=== PATIENT | female | born 1945 | race Caucasian/White ===

== ENCOUNTER 2018-11-22 16:03 | Inpatient (IN) ==
[2018-11-23] MEDS ORDERED: Clobetasol Propionate 0.05% 15 GM Cream Tube TP PRN (04:09)
[2018-11-23] MEDS ORDERED: *HR* OxyCODONE/APAP 10/325 TABLET PO SCH (04:30)
[2018-11-23] MEDS: *HR* Heparin 5,000 UNIT/ML VIAL SQ SCH ×2 (05:46→18:15)
[2018-11-23] MEDS: *HR* OxyCODONE/APAP 10/325 TABLET PO PRN ×3 (05:47→18:15)
[2018-11-23] MEDS: Metoprolol XL (24 HR) Succ 50 MG TAB.ER.24H PO SCH (08:48)
[2018-11-23] MEDS: Gabapentin 300 MG CAPSULE PO SCH ×2 (08:48→21:59)
[2018-11-23] MEDS: Aspirin Enteric Coated 81 MG Tablet PO SCH (08:48)
[2018-11-23] MEDS: Baclofen 10 MG TABLET PO SCH ×3 (08:48→21:59)
[2018-11-23] MEDS: levoFLOXacin 500 MG TABLET PO SCH (08:48)
[2018-11-23] MEDS: (Lutein [Natural Lutein] 20 MG) PO SCH (08:52)
[2018-11-23 09:50] LABS: Hematocrit 33.3 % (35.3-44.9); Mean Corpuscular Hemoglobin 33.6 pg (28.0-33.3); Mean Corpuscular Volume 101.8 fL (83.0-100.0); Mean Platelet Volume 9.5 fL (9.4-12.4); Platelet Count 396 K/mcL (140-400); Red Blood Count 3.27 M/mcL (3.82-4.97); Red Cell Distribution Width 13.2 % (11.5-14.5); White Blood Count 8.4 K/mcL (4.3-11.1)
[2018-11-23 10:02] LABS: BUN/Creatinine Ratio 15 (6-26); Blood Urea Nitrogen 14 mg/dL (8-23); Calcium 8.9 mg/dL (8.6-10.3); Carbon Dioxide 29 mEq/L (23-29); Chloride 98 mEq/L (98-107); Glucose 223 mg/dL (70-105); Osmolality,Calculated 287 (280-300); Potassium 4.2 mEq/L (3.5-5.1); Sodium 135 mEq/L (136-145); eGFR For African Americans > 60 (> 60); eGFR For Non-African Americans 60 (> 60)
[2018-11-23] MEDS: Melatonin 3 MG TABLET PO PRN (21:59)
[2018-11-23] MEDS: rOPINIRole 1 MG TABLET PO SCH (21:59)
[2018-11-24] MEDS: *HR* OxyCODONE/APAP 10/325 TABLET PO PRN ×4 (00:41→20:02)
[2018-11-24] MEDS: *HR* Heparin 5,000 UNIT/ML VIAL SQ SCH ×2 (05:56→17:58)
[2018-11-24 07:05] LABS: BUN/Creatinine Ratio 12 (6-26); Blood Urea Nitrogen 10 mg/dL (8-23); Carbon Dioxide 32 mEq/L (23-29); Chloride 100 mEq/L (98-107); Glucose 142 mg/dL (70-105); Osmolality,Calculated 291 (280-300); Potassium 3.5 mEq/L (3.5-5.1); Sodium 140 mEq/L (136-145); eGFR For African Americans > 60 (> 60); eGFR For Non-African Americans > 60 (> 60)
[2018-11-24] MEDS ORDERED: NON-FORMULARY MEDICATION 1 EACH EACH (Alendronate Sodium [Fosamax] 70 MG) PO SCH (09:00)
[2018-11-24] MEDS: Gabapentin 300 MG CAPSULE PO SCH ×2 (10:14→20:01)
[2018-11-24] MEDS: Aspirin Enteric Coated 81 MG Tablet PO SCH (10:15)
[2018-11-24] MEDS: levoFLOXacin 500 MG TABLET PO SCH (10:15)
[2018-11-24] MEDS: Metoprolol XL (24 HR) Succ 50 MG TAB.ER.24H PO SCH (10:15)
[2018-11-24] MEDS: (Lutein [Natural Lutein] 20 MG) PO SCH (10:15)
[2018-11-24] MEDS: Baclofen 10 MG TABLET PO SCH ×3 (10:15→20:01)
[2018-11-24 11:59] LABS: Vitamin B12 164 pg/mL (250-1100)
[2018-11-24 12:00] LABS: Vitamin D 25 Hydroxy 47 ng/mL (30-80)
[2018-11-24] MEDS: Cyanocobalamin (B-12) 1,000 MCG/ML VIAL IM SCH (14:12)
[2018-11-24] MEDS: Ondansetron ODT 4 MG TAB.RAPDIS SL PRN (19:01)
[2018-11-24] MEDS: rOPINIRole 1 MG TABLET PO SCH (20:01)
[2018-11-25] MEDS: *HR* OxyCODONE/APAP 10/325 TABLET PO PRN (04:32)
[2018-11-25] MEDS: *HR* Heparin 5,000 UNIT/ML VIAL SQ SCH ×2 (05:00→16:56)
[2018-11-25] MEDS: Ondansetron ODT 4 MG TAB.RAPDIS SL PRN (05:25)
[2018-11-25] MEDS: Gabapentin 300 MG CAPSULE PO SCH (09:51)
[2018-11-25] MEDS: Baclofen 10 MG TABLET PO SCH ×2 (09:51→14:20)
[2018-11-25] MEDS: levoFLOXacin 500 MG TABLET PO SCH (09:51)
[2018-11-25] MEDS: Metoprolol XL (24 HR) Succ 50 MG TAB.ER.24H PO SCH (09:51)
[2018-11-25] MEDS: Cyanocobalamin (B-12) 1,000 MCG/ML VIAL IM SCH (09:51)
[2018-11-25] MEDS: (Lutein [Natural Lutein] 20 MG) PO SCH (09:53)
[2018-11-25] MEDS ORDERED: 0.9 % Sodium Chloride w KCl 20 MEQ/1,000 ML MLS IVC SCH (11:45)
[2018-11-25] MEDS: Acetaminophen 325 MG TABLET PO PRN ×3 (14:24→22:29)
[2018-11-25] MEDS: rOPINIRole 1 MG TABLET PO SCH (22:20)
[2018-11-25] MEDS: Melatonin 3 MG TABLET PO PRN (22:32)
[2018-11-26] MEDS: *HR* OxyCODONE/APAP 10/325 TABLET PO PRN (00:42)
[2018-11-26] MEDS: *HR* Heparin 5,000 UNIT/ML VIAL SQ SCH ×2 (05:32→17:57)
[2018-11-26] MEDS: Acetaminophen 325 MG TABLET PO PRN ×2 (05:36→08:25)
[2018-11-26] MEDS: levoFLOXacin 500 MG TABLET PO SCH (08:25)
[2018-11-26] MEDS: (Lutein [Natural Lutein] 20 MG) PO SCH (08:27)
[2018-11-26] MEDS: Cyanocobalamin (B-12) 1,000 MCG/ML VIAL IM SCH (08:28)
[2018-11-26] MEDS ORDERED: Metoprolol XL (24 HR) Succ 25 MG TAB.ER.24H PO SCH (09:00)
[2018-11-26] MEDS ORDERED: Ibuprofen 400 MG TABLET PO PRN (10:26)
[2018-11-26] MEDS ORDERED: *HR* HYDROcodone/Acet 5/325 mg TABLET PO PRN ×2 (10:44)
[2018-11-26] MEDS: *HR* HYDROcodone/Acet 5/325 mg TABLET PO PRN ×3 (11:42→22:42)
[2018-11-26] MEDS: Famotidine 20 MG TABLET PO SCH ×2 (14:53→20:54)
[2018-11-26] MEDS: tiZANidine 4 MG TABLET PO PRN ×2 (18:19→23:52)
[2018-11-26] MEDS: Melatonin 3 MG TABLET PO PRN (20:54)
[2018-11-26] MEDS: rOPINIRole 1 MG TABLET PO SCH (20:54)
[2018-11-26] MEDS ORDERED: Famotidine 20 MG TABLET PO SCH (21:00)
[2018-11-27] MEDS: *HR* Heparin 5,000 UNIT/ML VIAL SQ SCH ×2 (05:01→17:59)
[2018-11-27] MEDS: *HR* HYDROcodone/Acet 5/325 mg TABLET PO PRN ×3 (07:47→23:10)
[2018-11-27] MEDS: Famotidine 20 MG TABLET PO SCH ×2 (07:48→20:33)
[2018-11-27] MEDS: (Lutein [Natural Lutein] 20 MG) PO SCH (07:49)
[2018-11-27] MEDS: Cyanocobalamin (B-12) 1,000 MCG/ML VIAL IM SCH (08:23)
[2018-11-27 10:16] LABS: Basophils % 0.2 %; Eosinophils # 0.1 K/mcL (0.0-0.6); Eosinophils % 1.3 %; Hematocrit 34.8 % (35.3-44.9); Hemoglobin 11.3 g/dL (11.5-15.4); Immature Granulocytes % 1.6 % (0-4); Lymphocytes # 2.4 K/mcL (0.6-4.6); Lymphocytes % 25.3 %; Mean Corpuscular HGB Conc 32.5 g/dL (31.6-35.5); Mean Corpuscular Hemoglobin 33.3 pg (28.0-33.3); Mean Corpuscular Volume 102.7 fL (83.0-100.0); Mean Platelet Volume 9.2 fL (9.4-12.4); Monocytes % 10.7 %; Neutrophils # 5.8 K/mcL (1.6-8.9); Platelet Count 572 K/mcL (140-400); Red Blood Count 3.39 M/mcL (3.82-4.97); Red Cell Distribution Width 13.6 % (11.5-14.5); Segmented Neutrophils % 60.9 %; White Blood Count 9.6 K/mcL (4.3-11.1)
[2018-11-27 10:27] LABS: Alanine Aminotransferase 17 Units/L (7-52); Albumin 3.3 g/dL (3.5-5.7); Albumin/Globulin Ratio 1.2 (1.1-2.2); Alkaline Phosphatase 66 Units/L (34-104); Aspartate Amino Transferase 13 Units/L (13-39); BUN/Creatinine Ratio 14 (6-26); Bilirubin,Total 0.5 mg/dL (0.3-1.0); Blood Urea Nitrogen 14 mg/dL (8-23); Calcium 9.3 mg/dL (8.6-10.3); Carbon Dioxide 21 mEq/L (23-29); Chloride 100 mEq/L (98-107); Globulin 2.7 g/dL (2.4-3.5); Glucose 161 mg/dL (70-105); Osmolality,Calculated 282 (280-300); Potassium 4.3 mEq/L (3.5-5.1); Sodium 134 mEq/L (136-145); eGFR For African Americans > 60 (> 60); eGFR For Non-African Americans 56 (> 60)
[2018-11-27] MEDS: levoFLOXacin 500 MG TABLET PO SCH (11:07)
[2018-11-27] MEDS: tiZANidine 4 MG TABLET PO PRN ×2 (11:50→20:33)
[2018-11-27] MEDS: Mag Hydrox/Al Hydrox/Simeth 30 ML UDC PO PRN (18:00)
[2018-11-27] MEDS: rOPINIRole 1 MG TABLET PO SCH (20:33)
[2018-11-27] MEDS: Melatonin 3 MG TABLET PO PRN (20:33)
[2018-11-28] MEDS: tiZANidine 4 MG TABLET PO PRN ×3 (02:31→21:04)
[2018-11-28] MEDS: *HR* Heparin 5,000 UNIT/ML VIAL SQ SCH ×2 (06:18→17:09)
[2018-11-28] MEDS: *HR* HYDROcodone/Acet 5/325 mg TABLET PO PRN ×2 (06:19→15:55)
[2018-11-28] MEDS: (Lutein [Natural Lutein] 20 MG) PO SCH (07:59)
[2018-11-28] MEDS: Famotidine 20 MG TABLET PO SCH ×2 (07:59→21:04)
[2018-11-28] MEDS: Cyanocobalamin (B-12) 1,000 MCG TABLET PO SCH (07:59)
[2018-11-28] MEDS: Ondansetron ODT 4 MG TAB.RAPDIS SL PRN (08:24)
[2018-11-28] MEDS: rOPINIRole 1 MG TABLET PO SCH (21:04)
[2018-11-28] MEDS: Melatonin 3 MG TABLET PO PRN (21:04)
[2018-11-29] MEDS: *HR* HYDROcodone/Acet 5/325 mg TABLET PO PRN ×3 (00:20→18:27)
[2018-11-29] MEDS: tiZANidine 4 MG TABLET PO PRN ×3 (05:55→21:03)
[2018-11-29] MEDS: *HR* Heparin 5,000 UNIT/ML VIAL SQ SCH ×2 (05:55→18:27)
[2018-11-29] MEDS: Famotidine 20 MG TABLET PO SCH ×2 (08:18→21:03)
[2018-11-29] MEDS: Cyanocobalamin (B-12) 1,000 MCG TABLET PO SCH (08:18)
[2018-11-29] MEDS: (Lutein [Natural Lutein] 20 MG) PO SCH (08:20)
[2018-11-29] MEDS: rOPINIRole 1 MG TABLET PO SCH (21:03)
[2018-11-29] MEDS: Melatonin 3 MG TABLET PO PRN (21:03)
[2018-11-30] MEDS: *HR* HYDROcodone/Acet 5/325 mg TABLET PO PRN ×4 (00:03→23:43)
[2018-11-30] MEDS: tiZANidine 4 MG TABLET PO PRN ×2 (04:13→12:26)
[2018-11-30] MEDS: *HR* Heparin 5,000 UNIT/ML VIAL SQ SCH ×2 (04:13→17:24)
[2018-11-30] MEDS: (Lutein [Natural Lutein] 20 MG) PO SCH (08:35)
[2018-11-30] MEDS: Cyanocobalamin (B-12) 1,000 MCG TABLET PO SCH (08:35)
[2018-11-30] MEDS: Famotidine 20 MG TABLET PO SCH ×2 (08:35→20:24)
[2018-11-30] MEDS ORDERED: Apixaban 5 MG TABLET PO SCH (09:00)
[2018-11-30] MEDS: Cholecalciferol (D-3) 1,000 UNIT (25MCG) TABLET PO SCH (12:26)
[2018-11-30] MEDS: Acetaminophen 325 MG TABLET PO PRN (20:24)
[2018-11-30] MEDS: Melatonin 3 MG TABLET PO PRN (20:24)
[2018-11-30] MEDS: rOPINIRole 1 MG TABLET PO SCH (20:24)
[2018-12-01] MEDS: tiZANidine 4 MG TABLET PO PRN ×3 (03:30→21:00)
[2018-12-01] MEDS: *HR* Heparin 5,000 UNIT/ML VIAL SQ SCH ×2 (05:36→16:54)
[2018-12-01] MEDS: Cholecalciferol (D-3) 1,000 UNIT (25MCG) TABLET PO SCH (07:39)
[2018-12-01] MEDS: (Lutein [Natural Lutein] 20 MG) PO SCH (07:39)
[2018-12-01] MEDS: Cyanocobalamin (B-12) 1,000 MCG TABLET PO SCH (07:40)
[2018-12-01] MEDS: *HR* HYDROcodone/Acet 5/325 mg TABLET PO PRN ×2 (07:40→21:00)
[2018-12-01] MEDS: Famotidine 20 MG TABLET PO SCH ×2 (07:41→20:59)
[2018-12-01] MEDS: rOPINIRole 1 MG TABLET PO SCH (21:00)
[2018-12-02] MEDS: Acetaminophen 325 MG TABLET PO PRN (01:23)
[2018-12-02] MEDS: *HR* Heparin 5,000 UNIT/ML VIAL SQ SCH ×2 (04:46→18:11)
[2018-12-02] MEDS: tiZANidine 4 MG TABLET PO PRN ×2 (04:46→20:16)
[2018-12-02 05:48] LABS: Basophils % 0.5 %; Eosinophils # 0.1 K/mcL (0.0-0.6); Eosinophils % 1.5 %; Hematocrit 33.6 % (35.3-44.9); Immature Granulocytes % 0.7 % (0-4); Lymphocytes # 1.6 K/mcL (0.6-4.6); Lymphocytes % 25.4 %; Mean Corpuscular HGB Conc 32.7 g/dL (31.6-35.5); Mean Corpuscular Hemoglobin 33.4 pg (28.0-33.3); Mean Corpuscular Volume 102.1 fL (83.0-100.0); Monocytes # 0.8 K/mcL (0.0-1.3); Monocytes % 12.7 %; Neutrophils # 3.6 K/mcL (1.6-8.9); Platelet Count 456 K/mcL (140-400); Red Blood Count 3.29 M/mcL (3.82-4.97); Red Cell Distribution Width 14.1 % (11.5-14.5); Segmented Neutrophils % 59.2 %; White Blood Count 6.1 K/mcL (4.3-11.1)
[2018-12-02 05:59] LABS: BUN/Creatinine Ratio 16 (6-26); Blood Urea Nitrogen 12 mg/dL (8-23); Calcium 8.9 mg/dL (8.6-10.3); Carbon Dioxide 27 mEq/L (23-29); Chloride 104 mEq/L (98-107); Glucose 113 mg/dL (70-105); Magnesium 2.2 mg/dL (1.6-2.6); Osmolality,Calculated 287 (280-300); Potassium 3.5 mEq/L (3.5-5.1); Sodium 138 mEq/L (136-145); eGFR For African Americans > 60 (> 60); eGFR For Non-African Americans > 60 (> 60)
[2018-12-02] MEDS: Cholecalciferol (D-3) 1,000 UNIT (25MCG) TABLET PO SCH (09:32)
[2018-12-02] MEDS: Cyanocobalamin (B-12) 1,000 MCG TABLET PO SCH (09:33)
[2018-12-02] MEDS: Famotidine 20 MG TABLET PO SCH ×2 (09:33→20:16)
[2018-12-02] MEDS: (Lutein [Natural Lutein] 20 MG) PO SCH (09:40)
[2018-12-02] MEDS: *HR* HYDROcodone/Acet 5/325 mg TABLET PO PRN ×3 (09:40→18:11)
[2018-12-02] MEDS: Mag Hydrox/Al Hydrox/Simeth 30 ML UDC PO PRN ×2 (12:47→18:16)
[2018-12-02] MEDS: Melatonin 3 MG TABLET PO PRN (20:16)
[2018-12-02] MEDS: rOPINIRole 1 MG TABLET PO SCH (20:16)
[2018-12-03] MEDS: *HR* HYDROcodone/Acet 5/325 mg TABLET PO PRN ×3 (01:09→20:01)
[2018-12-03] MEDS: tiZANidine 4 MG TABLET PO PRN ×2 (05:06→14:27)
[2018-12-03] MEDS: *HR* Heparin 5,000 UNIT/ML VIAL SQ SCH (05:06)
[2018-12-03] MEDS: Cholecalciferol (D-3) 1,000 UNIT (25MCG) TABLET PO SCH (09:10)
[2018-12-03] MEDS: Cyanocobalamin (B-12) 1,000 MCG TABLET PO SCH (09:10)
[2018-12-03] MEDS: Famotidine 20 MG TABLET PO SCH ×2 (09:11→20:01)
[2018-12-03] MEDS: (Lutein [Natural Lutein] 20 MG) PO SCH (09:13)
[2018-12-03] MEDS: Apixaban 5 MG TABLET PO SCH ×2 (14:27→20:01)
[2018-12-03] MEDS: Melatonin 3 MG TABLET PO PRN (20:01)
[2018-12-03] MEDS: rOPINIRole 1 MG TABLET PO SCH (20:01)
[2018-12-04] MEDS: Apixaban 5 MG TABLET PO SCH ×2 (08:06→20:41)
[2018-12-04] MEDS: Famotidine 20 MG TABLET PO SCH ×2 (08:07→20:42)
[2018-12-04] MEDS: Cholecalciferol (D-3) 1,000 UNIT (25MCG) TABLET PO SCH (08:07)
[2018-12-04] MEDS: Cyanocobalamin (B-12) 1,000 MCG TABLET PO SCH (08:07)
[2018-12-04] MEDS: tiZANidine 4 MG TABLET PO PRN ×2 (08:07→19:07)
[2018-12-04] MEDS: (Lutein [Natural Lutein] 20 MG) PO SCH (08:11)
[2018-12-04] MEDS: rOPINIRole 1 MG TABLET PO SCH (20:41)
[2018-12-04] MEDS: *HR* HYDROcodone/Acet 5/325 mg TABLET PO PRN (21:35)
[2018-12-05] MEDS: tiZANidine 4 MG TABLET PO PRN ×3 (01:11→18:12)
[2018-12-05] MEDS: *HR* HYDROcodone/Acet 5/325 mg TABLET PO PRN ×3 (05:44→23:17)
[2018-12-05] MEDS: Famotidine 20 MG TABLET PO SCH ×2 (08:36→20:27)
[2018-12-05] MEDS: Cyanocobalamin (B-12) 1,000 MCG TABLET PO SCH (08:36)
[2018-12-05] MEDS: Apixaban 5 MG TABLET PO SCH ×2 (08:36→20:26)
[2018-12-05] MEDS: Cholecalciferol (D-3) 1,000 UNIT (25MCG) TABLET PO SCH (08:36)
[2018-12-05] MEDS: (Lutein [Natural Lutein] 20 MG) PO SCH (08:37)
[2018-12-05 12:57] LABS: % Iron Saturation 27 % (15-50); Iron 81 mcg/dL (50-170); Transferrin 211 mg/dL (203-362)
[2018-12-05 12:59] LABS: Prealbumin 22.7 mg/dL (17.0-34.0)
[2018-12-05] MEDS: rOPINIRole 1 MG TABLET PO SCH (20:27)
[2018-12-05] MEDS: Melatonin 3 MG TABLET PO PRN (20:27)
[2018-12-06] MEDS: tiZANidine 4 MG TABLET PO PRN ×2 (03:15→09:38)
[2018-12-06] MEDS: *HR* HYDROcodone/Acet 5/325 mg TABLET PO PRN ×3 (05:35→21:42)
[2018-12-06 05:59] LABS: Alanine Aminotransferase 9 Units/L (7-52); Albumin 3.2 g/dL (3.5-5.7); Albumin/Globulin Ratio 1.3 (1.1-2.2); Alkaline Phosphatase 64 Units/L (34-104); Aspartate Amino Transferase 11 Units/L (13-39); BUN/Creatinine Ratio 17 (6-26); Bilirubin,Total 0.7 mg/dL (0.3-1.0); Blood Urea Nitrogen 13 mg/dL (8-23); Carbon Dioxide 26 mEq/L (23-29); Chloride 104 mEq/L (98-107); Globulin 2.4 g/dL (2.4-3.5); Glucose 118 mg/dL (70-105); Osmolality,Calculated 287 (280-300); Potassium 4.3 mEq/L (3.5-5.1); Sodium 138 mEq/L (136-145); Total Protein 5.6 g/dL (6.4-8.9); eGFR For African Americans > 60 (> 60); eGFR For Non-African Americans > 60 (> 60)
[2018-12-06] MEDS: Apixaban 5 MG TABLET PO SCH ×2 (09:38→21:42)
[2018-12-06] MEDS: Famotidine 20 MG TABLET PO SCH ×2 (09:39→21:41)
[2018-12-06] MEDS: Cholecalciferol (D-3) 1,000 UNIT (25MCG) TABLET PO SCH (09:39)
[2018-12-06] MEDS: Cyanocobalamin (B-12) 1,000 MCG TABLET PO SCH (09:39)
[2018-12-06] MEDS: (Lutein [Natural Lutein] 20 MG) PO SCH (09:39)
[2018-12-06] MEDS: rOPINIRole 1 MG TABLET PO SCH (21:42)
[2018-12-06] MEDS: Melatonin 3 MG TABLET PO PRN (21:42)
[2018-12-07] MEDS: tiZANidine 4 MG TABLET PO PRN (00:13)
[2018-12-07] MEDS: Apixaban 5 MG TABLET PO SCH (22:00)
[2018-12-07] MEDS: Melatonin 3 MG TABLET PO PRN (22:01)
[2018-12-07] MEDS: Famotidine 20 MG TABLET PO SCH (22:01)
[2018-12-07] MEDS: rOPINIRole 1 MG TABLET PO SCH (22:01)
[2018-12-07] MEDS: *HR* HYDROcodone/Acet 5/325 mg TABLET PO PRN (22:02)
[2018-12-08] MEDS: tiZANidine 4 MG TABLET PO PRN ×2 (01:32→13:05)
[2018-12-08] MEDS: Cyanocobalamin (B-12) 1,000 MCG TABLET PO SCH (08:16)
[2018-12-08] MEDS: Cholecalciferol (D-3) 1,000 UNIT (25MCG) TABLET PO SCH (08:16)
[2018-12-08] MEDS: *HR* HYDROcodone/Acet 5/325 mg TABLET PO PRN ×2 (08:16→20:35)
[2018-12-08] MEDS: Famotidine 20 MG TABLET PO SCH ×2 (08:16→20:34)
[2018-12-08] MEDS: Apixaban 5 MG TABLET PO SCH ×2 (08:17→20:34)
[2018-12-08] MEDS: (Lutein [Natural Lutein] 20 MG) PO SCH (08:19)
[2018-12-08] MEDS: Melatonin 3 MG TABLET PO PRN (20:34)
[2018-12-08] MEDS: rOPINIRole 1 MG TABLET PO SCH (20:34)
[2018-12-09] MEDS: tiZANidine 4 MG TABLET PO PRN ×3 (02:49→20:55)
[2018-12-09] MEDS: Cyanocobalamin (B-12) 1,000 MCG TABLET PO SCH (07:55)
[2018-12-09] MEDS: Cholecalciferol (D-3) 1,000 UNIT (25MCG) TABLET PO SCH (07:55)
[2018-12-09] MEDS: Famotidine 20 MG TABLET PO SCH ×2 (07:56→20:55)
[2018-12-09] MEDS: Apixaban 5 MG TABLET PO SCH ×2 (07:56→20:54)
[2018-12-09] MEDS: *HR* HYDROcodone/Acet 5/325 mg TABLET PO PRN ×2 (07:56→17:12)
[2018-12-09] MEDS: (Lutein [Natural Lutein] 20 MG) PO SCH (07:57)
[2018-12-09] MEDS: Melatonin 3 MG TABLET PO PRN (20:54)
[2018-12-09] MEDS: rOPINIRole 1 MG TABLET PO SCH (20:54)
[2018-12-10] MEDS: *HR* HYDROcodone/Acet 5/325 mg TABLET PO PRN ×2 (02:25→11:05)
[2018-12-10 07:43] VITALS: BP 131/74
[2018-12-10] MEDS: Apixaban 5 MG TABLET PO SCH ×2 (07:55)
[2018-12-10] MEDS: Famotidine 20 MG TABLET PO SCH (07:55)
[2018-12-10] MEDS: (Lutein [Natural Lutein] 20 MG) PO SCH ×2 (07:56→08:04)
[2018-12-10] MEDS: Cyanocobalamin (B-12) 1,000 MCG TABLET PO SCH ×2 (07:57→08:03)
[2018-12-10] MEDS: Cholecalciferol (D-3) 1,000 UNIT (25MCG) TABLET PO SCH ×2 (07:57→07:59)
== END 2018-12-10 12:50 | disposition home health service (06) | DRG 560 ==
LOC: INPGRE 11-23 03:18

== ENCOUNTER 2021-08-24 01:40 | Inpatient (IN) ==
[2021-08-24] MEDS ORDERED: Naloxone 0.4 MG/ML INJ IVP PRN (08:48)
[2021-08-24] MEDS ORDERED: Acetaminophen 325 MG TABLET PO PRN (08:48)
[2021-08-24] MEDS ORDERED: Nitroglycerin 0.4 MG TAB.SUBL SL PRN (08:55)
[2021-08-24] MEDS ORDERED: Metoprolol XL (24 HR) Succ 25 MG TAB.ER.24H PO SCH (09:00)
[2021-08-24 09:44] LABS: Hematocrit 37.2 % (35.3-44.9); Hemoglobin 12.2 g/dL (11.5-15.4); Mean Corpuscular HGB Conc 32.8 g/dL (31.6-35.5); Mean Corpuscular Volume 85.3 fL (83.0-100.0); Mean Platelet Volume 9.2 fL (9.4-12.4); Platelet Count 263 K/mcL (140-400); Red Blood Count 4.36 M/mcL (3.82-4.97); Red Cell Distribution Width 14.6 % (11.5-14.5); White Blood Count 7.5 K/mcL (4.3-11.1)
[2021-08-24] MEDS: Ipratropium/Albuterol Neb 3 ML IH SCH ×5 (09:45→23:59)
[2021-08-24 10:20] LABS: BUN/Creatinine Ratio 25 (6-26); Blood Urea Nitrogen 21 mg/dL (8-23); Calcium 9.2 mg/dL (8.6-10.3); Carbon Dioxide 27 mEq/L (23-29); Chloride 106 mEq/L (98-107); Glucose 131 mg/dL (70-105); Osmolality,Calculated 297 (280-300); Sodium 141 mEq/L (136-145); eGFR For African Americans > 60 (> 60); eGFR For Non-African Americans > 60 (> 60)
[2021-08-24] MEDS: Cyanocobalamin (B-12) 1,000 MCG TABLET PO SCH (11:30)
[2021-08-24] MEDS: Baclofen 10 MG TABLET PO SCH ×3 (11:30→20:11)
[2021-08-24] MEDS: Aspirin 81 MG TAB.CHEW PO SCH (11:31)
[2021-08-24] MEDS: Furosemide 20 MG TABLET PO SCH (11:31)
[2021-08-24] MEDS: levoFLOXacin 750 MG/150 ML 750 MG/150 ML BAG IVPB SCH (11:37)
[2021-08-24] MEDS: Patient Taking Own Medication 1 EACH PO SCH ×6 (11:49→20:11)
[2021-08-24] MEDS: Clobetasol Propionate 0.05% 15 GM Cream Tube TP SCH (11:50)
[2021-08-24] MEDS ORDERED: Metoprolol XL (24 HR) Succ 25 MG TAB.ER.24H PO ONE (14:15)
[2021-08-24 15:16] LABS: Adenovirus Not Detected (Not Detect); Bordetella Pertussis Not Detected (Not Detect); Chlamydophila pneumoniae Not Detected (Not Detect); Coronavirus 229E Not Detected (Not Detect); Coronavirus HKU1 Not Detected (Not Detect); Coronavirus NL63 Not Detected (Not Detect); Coronavirus OC43 Not Detected (Not Detect); Human Metapneumovirus Not Detected (Not Detect); Human Rhinovirus/Enterovirus Not Detected (Not Detect); Influenza A Subtype 2009 H1 Not Detected (Not Detect); Influenza B Not Detected (Not Detect); Mycoplasma pneumoniae Not Detected (Not Detect); Parainfluenza Virus 1 Not Detected (Not Detect); Parainfluenza Virus 2 Not Detected (Not Detect); Parainfluenza Virus 3 Not Detected (Not Detect); Parainfluenza Virus 4 Not Detected (Not Detect); Respiratory Syncytial Virus Not Detected (Not Detect); SARS-CoV-2 Not Detected (Not Detect)
[2021-08-24] MEDS: Gabapentin 300 MG CAPSULE PO SCH (20:11)
[2021-08-24] MEDS: *HR* OxyCODONE/APAP 10/325 TABLET PO PRN (20:11)
[2021-08-24] MEDS: Famotidine 20 MG TABLET PO SCH (20:11)
[2021-08-24] MEDS: rOPINIRole 1 MG TABLET PO SCH (20:11)
[2021-08-25] MEDS: Ipratropium/Albuterol Neb 3 ML IH SCH ×2 (04:27→07:28)
[2021-08-25 05:24] LABS: Hematocrit 38.7 % (35.3-44.9); Hemoglobin 12.4 g/dL (11.5-15.4); Mean Corpuscular Hemoglobin 28.1 pg (28.0-33.3); Mean Corpuscular Volume 87.6 fL (83.0-100.0); Mean Platelet Volume 9.6 fL (9.4-12.4); Platelet Count 254 K/mcL (140-400); Red Blood Count 4.42 M/mcL (3.82-4.97); Red Cell Distribution Width 14.9 % (11.5-14.5); White Blood Count 7.1 K/mcL (4.3-11.1)
[2021-08-25 05:47] LABS: BUN/Creatinine Ratio 16 (6-26); Blood Urea Nitrogen 16 mg/dL (8-23); Calcium 9.3 mg/dL (8.6-10.3); Carbon Dioxide 28 mEq/L (23-29); Chloride 104 mEq/L (98-107); Chol/HDL Ratio 3.9 (0-4.9); Cholesterol 199 mg/dL (< 200); Glucose 122 mg/dL (70-105); HDL Cholesterol 51 mg/dL (40-59); LDL Cholesterol,Calculated 122 mg/dL (< 100); Osmolality,Calculated 298 (280-300); Potassium 3.3 mEq/L (3.5-5.1); Sodium 143 mEq/L (136-145); Triglycerides 130 mg/dL (< 150); eGFR For African Americans > 60 (> 60); eGFR For Non-African Americans 55 (> 60)
[2021-08-25 07:52] LABS: Alanine Aminotransferase 8 Units/L (7-52); Albumin 3.5 g/dL (3.5-5.7); Alkaline Phosphatase 67 Units/L (34-104); Aspartate Amino Transferase 12 Units/L (13-39); Bilirubin,Direct 0.1 mg/dL (0.0-0.2); Bilirubin,Indirect 0.4 mg/dL (0.0-1.0); Bilirubin,Total 0.5 mg/dL (0.3-1.0)
[2021-08-25] MEDS: Levalbuterol Neb 1.25 MG/3 ML IH SCH ×3 (10:58→21:23)
[2021-08-25] MEDS: Furosemide 20 MG TABLET PO SCH (11:00)
[2021-08-25] MEDS: Metoprolol XL (24 HR) Succ 50 MG TAB.ER.24H PO SCH (11:00)
[2021-08-25] MEDS: Cyanocobalamin (B-12) 1,000 MCG TABLET PO SCH (11:00)
[2021-08-25] MEDS: Gabapentin 300 MG CAPSULE PO SCH ×2 (11:00→20:35)
[2021-08-25] MEDS: Baclofen 10 MG TABLET PO SCH ×3 (11:01→20:35)
[2021-08-25] MEDS: Aspirin 81 MG TAB.CHEW PO SCH (11:01)
[2021-08-25] MEDS: Patient Taking Own Medication 1 EACH PO SCH ×7 (11:01→20:36)
[2021-08-25] MEDS: levoFLOXacin 750 MG/150 ML 750 MG/150 ML BAG IVPB SCH (11:03)
[2021-08-25 11:07] LABS: Albumin/Globulin Ratio 1.3 (1.1-2.2); Globulin 2.7 g/dL (2.4-3.5); Total Protein 6.2 g/dL (6.4-8.9)
[2021-08-25] MEDS ORDERED: Iopamidol - 370 500 ML MLS IVP ONE (12:40)
[2021-08-25] MEDS ORDERED: Furosemide 20 MG/2 ML VIAL IVP ONE (14:48)
[2021-08-25] MEDS: *HR* Enoxaparin 40 MG/0.4 ML SYRINGE SQ SCH (15:12)
[2021-08-25] MEDS ORDERED: 0.9 % Sodium Chloride 250 ML IVC ONE (16:01)
[2021-08-25] MEDS: 0.9 % Sodium Chloride 1,000 ML IVC SCH (17:45)
[2021-08-25 20:23] LABS: Bilirubin,Urine Negative (Negative); Blood,Urine Negative (Negative); Clarity,Urine Clear (Clear); Color,Urine Yellow (Yellow); Glucose,Urine (UA) Normal (Normal); Ketones,Urine Negative (Negative); Leukocyte Esterase,Urine Negative (Negative); Nitrite,Urine Negative (Negative); Protein,Urine Negative (Neg-Trace); Specific Gravity,Urine 1.025 (1.010-1.025); Urobilinogen,Urine Normal (Normal)
[2021-08-25] MEDS: *HR* OxyCODONE/APAP 10/325 TABLET PO PRN (20:34)
[2021-08-25] MEDS: rOPINIRole 1 MG TABLET PO SCH (20:35)
[2021-08-25] MEDS: Famotidine 20 MG TABLET PO SCH (20:35)
[2021-08-25] MEDS ORDERED: Furosemide 20 MG TABLET PO SCH (21:00)
[2021-08-26 01:23] LABS: Hematocrit 35.2 % (35.3-44.9); Hemoglobin 11.3 g/dL (11.5-15.4); Mean Corpuscular HGB Conc 32.1 g/dL (31.6-35.5); Mean Corpuscular Hemoglobin 27.8 pg (28.0-33.3); Mean Corpuscular Volume 86.7 fL (83.0-100.0); Mean Platelet Volume 9.5 fL (9.4-12.4); Platelet Count 226 K/mcL (140-400); Red Blood Count 4.06 M/mcL (3.82-4.97); Red Cell Distribution Width 14.9 % (11.5-14.5); White Blood Count 7.2 K/mcL (4.3-11.1)
[2021-08-26 02:14] LABS: Alanine Aminotransferase 8 Units/L (7-52); Albumin 3.1 g/dL (3.5-5.7); Albumin/Globulin Ratio 1.3 (1.1-2.2); Alkaline Phosphatase 57 Units/L (34-104); Aspartate Amino Transferase 12 Units/L (13-39); BUN/Creatinine Ratio 15 (6-26); Bilirubin,Total 0.4 mg/dL (0.3-1.0); Blood Urea Nitrogen 16 mg/dL (8-23); Calcium 8.8 mg/dL (8.6-10.3); Carbon Dioxide 25 mEq/L (23-29); Chloride 107 mEq/L (98-107); Globulin 2.4 g/dL (2.4-3.5); Glucose 127 mg/dL (70-105); Magnesium 1.8 mg/dL (1.6-2.6); Osmolality,Calculated 297 (280-300); Potassium 3.5 mEq/L (3.5-5.1); Sodium 142 mEq/L (136-145); Total Protein 5.5 g/dL (6.4-8.9); eGFR For African Americans > 60 (> 60); eGFR For Non-African Americans 51 (> 60)
[2021-08-26] MEDS: Levalbuterol Neb 1.25 MG/3 ML IH SCH ×4 (04:06→21:26)
[2021-08-26] MEDS: *HR* Enoxaparin 40 MG/0.4 ML SYRINGE SQ SCH (04:49)
[2021-08-26] MEDS ORDERED: *HR* Enoxaparin 40 MG/0.4 ML SYRINGE SQ SCH (06:00)
[2021-08-26] MEDS: 0.9 % Sodium Chloride 1,000 ML IVC SCH (07:56)
[2021-08-26] MEDS: Metoprolol XL (24 HR) Succ 50 MG TAB.ER.24H PO SCH (07:57)
[2021-08-26] MEDS: *HR* OxyCODONE/APAP 10/325 TABLET PO PRN ×2 (07:57→21:16)
[2021-08-26] MEDS: Aspirin 81 MG TAB.CHEW PO SCH (07:57)
[2021-08-26] MEDS: Cyanocobalamin (B-12) 1,000 MCG TABLET PO SCH (07:57)
[2021-08-26] MEDS: Gabapentin 300 MG CAPSULE PO SCH ×2 (07:57→21:10)
[2021-08-26] MEDS: Patient Taking Own Medication 1 EACH PO SCH ×7 (07:58→23:31)
[2021-08-26] MEDS: Baclofen 10 MG TABLET PO SCH ×3 (07:58→21:11)
[2021-08-26] MEDS: Clobetasol Propionate 0.05% 15 GM Cream Tube TP SCH (07:59)
[2021-08-26] MEDS: levoFLOXacin 750 MG/150 ML 750 MG/150 ML BAG IVPB SCH (08:04)
[2021-08-26] MEDS: Ondansetron 4 MG/2 ML VIAL IVP PRN (17:37)
[2021-08-26] MEDS: rOPINIRole 1 MG TABLET PO SCH (21:11)
[2021-08-26] MEDS: Famotidine 20 MG TABLET PO SCH (21:11)
[2021-08-27] MEDS: Levalbuterol Neb 1.25 MG/3 ML IH SCH ×4 (04:05→22:00)
[2021-08-27] MEDS: *HR* OxyCODONE/APAP 10/325 TABLET PO PRN ×3 (04:09→20:50)
[2021-08-27] MEDS: *HR* Enoxaparin 40 MG/0.4 ML SYRINGE SQ SCH (04:09)
[2021-08-27] MEDS: levoFLOXacin 750 MG/150 ML 750 MG/150 ML BAG IVPB SCH (10:40)
[2021-08-27] MEDS: Aspirin 81 MG TAB.CHEW PO SCH (10:41)
[2021-08-27] MEDS: Metoprolol XL (24 HR) Succ 50 MG TAB.ER.24H PO SCH (10:41)
[2021-08-27] MEDS: Cyanocobalamin (B-12) 1,000 MCG TABLET PO SCH (10:41)
[2021-08-27] MEDS: Gabapentin 300 MG CAPSULE PO SCH ×2 (10:41→19:27)
[2021-08-27] MEDS: Baclofen 10 MG TABLET PO SCH ×3 (10:41→19:27)
[2021-08-27] MEDS: Patient Taking Own Medication 1 EACH PO SCH ×7 (10:42→19:37)
[2021-08-27 12:43] LABS: INR 1.4; Prothrombin Time 16.1 Seconds (9.4-12.1)
[2021-08-27] MEDS ORDERED: Warfarin perPT PO PRN (18:00)
[2021-08-27] MEDS ORDERED: *HR* Warfarin 2.5 MG TABLET PO ONE (18:00)
[2021-08-27] MEDS ORDERED: *HR* Warfarin 5 MG TABLET PO SCH (18:00)
[2021-08-27] MEDS: Famotidine 20 MG TABLET PO SCH (19:27)
[2021-08-27] MEDS: rOPINIRole 1 MG TABLET PO SCH (19:27)
[2021-08-27] MEDS: Ondansetron 4 MG/2 ML VIAL IVP PRN (19:27)
[2021-08-28] MEDS: Levalbuterol Neb 1.25 MG/3 ML IH SCH ×4 (04:49→19:48)
[2021-08-28] MEDS: *HR* Enoxaparin 40 MG/0.4 ML SYRINGE SQ SCH (04:54)
[2021-08-28 04:57] LABS: Hematocrit 33.6 % (35.3-44.9); Hemoglobin 10.6 g/dL (11.5-15.4); Mean Corpuscular HGB Conc 31.5 g/dL (31.6-35.5); Mean Corpuscular Hemoglobin 28.3 pg (28.0-33.3); Mean Corpuscular Volume 89.6 fL (83.0-100.0); Mean Platelet Volume 9.6 fL (9.4-12.4); Platelet Count 203 K/mcL (140-400); Red Blood Count 3.75 M/mcL (3.82-4.97); Red Cell Distribution Width 15.2 % (11.5-14.5); White Blood Count 7.3 K/mcL (4.3-11.1)
[2021-08-28 05:04] LABS: INR 1.4; Prothrombin Time 15.4 Seconds (9.4-12.1)
[2021-08-28 05:15] LABS: Alanine Aminotransferase 7 Units/L (7-52); Albumin 3.1 g/dL (3.5-5.7); Albumin/Globulin Ratio 1.4 (1.1-2.2); Alkaline Phosphatase 57 Units/L (34-104); Aspartate Amino Transferase 12 Units/L (13-39); BUN/Creatinine Ratio 15 (6-26); Bilirubin,Total 0.4 mg/dL (0.3-1.0); Blood Urea Nitrogen 16 mg/dL (8-23); Calcium 9.1 mg/dL (8.6-10.3); Carbon Dioxide 27 mEq/L (23-29); Chloride 107 mEq/L (98-107); Globulin 2.2 g/dL (2.4-3.5); Glucose 111 mg/dL (70-105); Magnesium 1.8 mg/dL (1.6-2.6); Osmolality,Calculated 290 (280-300); Potassium 3.7 mEq/L (3.5-5.1); Sodium 139 mEq/L (136-145); Total Protein 5.3 g/dL (6.4-8.9); eGFR For African Americans > 60 (> 60); eGFR For Non-African Americans 50 (> 60)
[2021-08-28] MEDS: Patient Taking Own Medication 1 EACH PO SCH ×7 (09:19→20:06)
[2021-08-28] MEDS: Gabapentin 300 MG CAPSULE PO SCH ×2 (09:57→20:09)
[2021-08-28] MEDS: Metoprolol XL (24 HR) Succ 50 MG TAB.ER.24H PO SCH (09:58)
[2021-08-28] MEDS: Baclofen 10 MG TABLET PO SCH ×3 (09:58→20:10)
[2021-08-28] MEDS: Cyanocobalamin (B-12) 1,000 MCG TABLET PO SCH (09:58)
[2021-08-28] MEDS: Aspirin 81 MG TAB.CHEW PO SCH (09:58)
[2021-08-28] MEDS: levoFLOXacin 750 MG/150 ML 750 MG/150 ML BAG IVPB SCH (09:59)
[2021-08-28] MEDS: *HR* OxyCODONE/APAP 10/325 TABLET PO PRN ×2 (10:10→21:02)
[2021-08-28] MEDS: Clobetasol Propionate 0.05% 15 GM Cream Tube TP SCH (12:01)
[2021-08-28] MEDS ORDERED: Bisacodyl 10 MG RECTAL SUPPOSITORY RC PRN (12:16)
[2021-08-28] MEDS ORDERED: MOM Conc 10 ML UD.LIQ PO PRN (12:16)
[2021-08-28] MEDS: Sennosides 8.6 MG TABLET PO SCH ×2 (14:01→20:10)
[2021-08-28] MEDS: Ondansetron ODT 4 MG TAB.RAPDIS SL PRN (17:49)
[2021-08-28] MEDS ORDERED: *HR* Warfarin 2.5 MG TABLET PO ONE (18:00)
[2021-08-28] MEDS: rOPINIRole 1 MG TABLET PO SCH (20:10)
[2021-08-28] MEDS: Famotidine 20 MG TABLET PO SCH (20:10)
[2021-08-28] MEDS ORDERED: Sennosides 8.6 MG TABLET PO SCH (21:00)
[2021-08-28] MEDS ORDERED: Clobetasol Propionate 0.05% 15 GM Cream Tube TP SCH (21:00)
[2021-08-29] MEDS: *HR* Enoxaparin 40 MG/0.4 ML SYRINGE SQ SCH (04:30)
[2021-08-29] MEDS: Levalbuterol Neb 1.25 MG/3 ML IH SCH ×4 (04:31→21:04)
[2021-08-29] MEDS: *HR* OxyCODONE/APAP 10/325 TABLET PO PRN ×2 (04:39→21:34)
[2021-08-29 04:50] LABS: INR 1.4; Prothrombin Time 15.9 Seconds (9.4-12.1)
[2021-08-29] MEDS: Ondansetron ODT 4 MG TAB.RAPDIS SL PRN (05:42)
[2021-08-29] MEDS: Sennosides 8.6 MG TABLET PO SCH ×2 (09:13→20:03)
[2021-08-29] MEDS: Metoprolol XL (24 HR) Succ 50 MG TAB.ER.24H PO SCH (09:13)
[2021-08-29] MEDS: Gabapentin 300 MG CAPSULE PO SCH ×2 (09:13→20:02)
[2021-08-29] MEDS: Baclofen 10 MG TABLET PO SCH ×3 (09:14→20:03)
[2021-08-29] MEDS: Aspirin 81 MG TAB.CHEW PO SCH (09:14)
[2021-08-29] MEDS: Cyanocobalamin (B-12) 1,000 MCG TABLET PO SCH (09:14)
[2021-08-29] MEDS: Patient Taking Own Medication 1 EACH PO SCH ×7 (09:14→20:03)
[2021-08-29] MEDS ORDERED: *HR* Warfarin 2.5 MG TABLET PO ONE (18:00)
[2021-08-29] MEDS: rOPINIRole 1 MG TABLET PO SCH (20:02)
[2021-08-29] MEDS: Famotidine 20 MG TABLET PO SCH (20:03)
[2021-08-30] MEDS: Levalbuterol Neb 1.25 MG/3 ML IH SCH ×3 (03:24→15:27)
[2021-08-30] MEDS: *HR* OxyCODONE/APAP 10/325 TABLET PO PRN ×2 (03:52→13:27)
[2021-08-30 04:33] LABS: Basophils % 0.4 %; Eosinophils # 0.3 K/mcL (0.0-0.6); Eosinophils % 4.4 %; Immature Granulocytes % 0.4 % (0-4); Lymphocytes # 1.1 K/mcL (0.6-4.6); Lymphocytes % 19.8 %; Mean Corpuscular HGB Conc 31.4 g/dL (31.6-35.5); Mean Corpuscular Volume 89.1 fL (83.0-100.0); Mean Platelet Volume 9.6 fL (9.4-12.4); Monocytes # 0.8 K/mcL (0.0-1.3); Monocytes % 13.7 %; Neutrophils # 3.5 K/mcL (1.6-8.9); Platelet Count 210 K/mcL (140-400); Red Blood Count 3.93 M/mcL (3.82-4.97); Red Cell Distribution Width 15.4 % (11.5-14.5); Segmented Neutrophils % 61.3 %; White Blood Count 5.7 K/mcL (4.3-11.1)
[2021-08-30 04:37] LABS: INR 1.5; Prothrombin Time 16.3 Seconds (9.4-12.1)
[2021-08-30 04:48] LABS: BUN/Creatinine Ratio 11 (6-26); Blood Urea Nitrogen 12 mg/dL (8-23); Calcium 8.9 mg/dL (8.6-10.3); Carbon Dioxide 28 mEq/L (23-29); Chloride 107 mEq/L (98-107); Glucose 93 mg/dL (70-105); Magnesium 2.1 mg/dL (1.6-2.6); Osmolality,Calculated 291 (280-300); Potassium 3.9 mEq/L (3.5-5.1); Sodium 141 mEq/L (136-145); eGFR For African Americans > 60 (> 60); eGFR For Non-African Americans 51 (> 60)
[2021-08-30] MEDS: *HR* Heparin 5,000 UNIT/ML VIAL SQ SCH ×2 (06:00→13:27)
[2021-08-30 06:33] VITALS: TEMP 97.9
[2021-08-30] MEDS: Aspirin 81 MG TAB.CHEW PO SCH (08:31)
[2021-08-30] MEDS: Gabapentin 300 MG CAPSULE PO SCH (08:31)
[2021-08-30] MEDS: Baclofen 10 MG TABLET PO SCH ×2 (08:31→14:56)
[2021-08-30] MEDS: Metoprolol XL (24 HR) Succ 50 MG TAB.ER.24H PO SCH (08:32)
[2021-08-30] MEDS: Sennosides 8.6 MG TABLET PO SCH (08:32)
[2021-08-30] MEDS: Cyanocobalamin (B-12) 1,000 MCG TABLET PO SCH (08:32)
[2021-08-30] MEDS: Patient Taking Own Medication 1 EACH PO SCH ×4 (08:32)
[2021-08-30] MEDS ORDERED: levoFLOXacin 750 MG/150 ML 750 MG/150 ML BAG IVPB SCH (09:00)
[2021-08-30] MEDS ORDERED: Furosemide 20 MG TABLET PO SCH (09:00)
[2021-08-30 10:35] VITALS: BP 109/76; PULSE 98
[2021-08-30 15:29] VITALS: RESP 16; O2SAT 95
[2021-08-30] MEDS ORDERED: *HR* Warfarin 5 MG TABLET PO ONE (18:00)
== END 2021-08-30 16:04 | disposition other institution (70) | DRG 189 ==
LOC: INPGRE → SUATTDRO 08:46
PROVIDERS: ADMIT Internal Medicine; ATTEND Family Medicine

== ENCOUNTER 2021-08-30 15:56 | Inpatient (IN) ==
[2021-08-30] MEDS ORDERED: Warfarin perPT PO PRN (16:57)
[2021-08-30] MEDS ORDERED: *HR* Warfarin 5 MG TABLET PO ONE (18:00)
[2021-08-30] MEDS: rOPINIRole 1 MG TABLET PO SCH (20:35)
[2021-08-30] MEDS: Baclofen 10 MG TABLET PO SCH (20:35)
[2021-08-30] MEDS: Famotidine 20 MG TABLET PO SCH (20:35)
[2021-08-30] MEDS: Gabapentin 300 MG CAPSULE PO SCH (20:35)
[2021-08-30] MEDS: BIOTIN 5000 MCG PO SCH (21:06)
[2021-08-30] MEDS: *HR* OxyCODONE/APAP 10/325 TABLET PO PRN (23:14)
[2021-08-31 05:00] LABS: Basophils % 0.3 %; Eosinophils # 0.3 K/mcL (0.0-0.6); Eosinophils % 5.1 %; Hematocrit 35.5 % (35.3-44.9); Hemoglobin 11.2 g/dL (11.5-15.4); INR 1.6; Immature Granulocytes % 0.5 % (0-4); Lymphocytes # 1.5 K/mcL (0.6-4.6); Lymphocytes % 22.2 %; Mean Corpuscular HGB Conc 31.5 g/dL (31.6-35.5); Mean Corpuscular Hemoglobin 27.8 pg (28.0-33.3); Mean Corpuscular Volume 88.1 fL (83.0-100.0); Mean Platelet Volume 10.1 fL (9.4-12.4); Monocytes # 0.8 K/mcL (0.0-1.3); Monocytes % 12.6 %; Neutrophils # 3.9 K/mcL (1.6-8.9); Platelet Count 236 K/mcL (140-400); Prothrombin Time 17.4 Seconds (9.4-12.1); Red Blood Count 4.03 M/mcL (3.82-4.97); Red Cell Distribution Width 15.5 % (11.5-14.5); Segmented Neutrophils % 59.3 %; White Blood Count 6.5 K/mcL (4.3-11.1)
[2021-08-31 05:13] LABS: Calcium 9.2 mg/dL (8.6-10.3); Potassium 3.9 mEq/L (3.5-5.1)
[2021-08-31] MEDS ORDERED: *HR* Warfarin 5 MG TABLET PO SCH (07:30)
[2021-08-31] MEDS: Baclofen 10 MG TABLET PO SCH ×3 (09:27→21:07)
[2021-08-31] MEDS: Cyanocobalamin (B-12) 1,000 MCG TABLET PO SCH (09:27)
[2021-08-31] MEDS: Gabapentin 300 MG CAPSULE PO SCH ×2 (09:27→21:06)
[2021-08-31] MEDS: Metoprolol XL (24 HR) Succ 25 MG TAB.ER.24H PO SCH (09:27)
[2021-08-31] MEDS: Aspirin 81 MG TAB.CHEW PO SCH (09:27)
[2021-08-31] MEDS: Multivit/Ca/Min/Fe/FA 1 TAB TABLET PO SCH (09:27)
[2021-08-31] MEDS: Cholecalciferol (D-3) 1,000 UNIT (25MCG) TABLET PO SCH (09:27)
[2021-08-31] MEDS: Furosemide 20 MG TABLET PO SCH (09:27)
[2021-08-31] MEDS: *HR* OxyCODONE/APAP 10/325 TABLET PO PRN ×2 (09:28→16:45)
[2021-08-31] MEDS: BIOTIN 5000 MCG PO SCH ×2 (09:28→21:09)
[2021-08-31] MEDS: Clobetasol Propionate 0.05% 15 GM Cream Tube TP SCH (09:28)
[2021-08-31] MEDS: (Cranberry 500 MG Capsule) PO SCH (09:28)
[2021-08-31] MEDS ORDERED: Perflutren Lipid Microsphere 1.3 ML in 0.9 % Sodium Chloride 8.7 ML IVP PRN (09:49)
[2021-08-31] MEDS ORDERED: Nystatin POWDER 30 GM BOTTLE TP PRN (11:14)
[2021-08-31] MEDS ORDERED: *HR* Warfarin 5 MG TABLET PO ONE (18:00)
[2021-08-31] MEDS: Famotidine 20 MG TABLET PO SCH (21:07)
[2021-08-31] MEDS: rOPINIRole 1 MG TABLET PO SCH (21:07)
[2021-09-01] MEDS: *HR* OxyCODONE/APAP 10/325 TABLET PO PRN
[2021-09-01 07:31] LABS: INR 1.8; Prothrombin Time 20.5 Seconds (9.4-12.1)
[2021-09-01] MEDS: Multivit/Ca/Min/Fe/FA 1 TAB TABLET PO SCH (09:13)
[2021-09-01] MEDS: (Cranberry 500 MG Capsule) PO SCH (09:13)
[2021-09-01] MEDS: BIOTIN 5000 MCG PO SCH ×2 (09:13→21:19)
[2021-09-01] MEDS: Furosemide 20 MG TABLET PO SCH (09:14)
[2021-09-01] MEDS: Gabapentin 300 MG CAPSULE PO SCH ×2 (09:14→21:44)
[2021-09-01] MEDS: Metoprolol XL (24 HR) Succ 25 MG TAB.ER.24H PO SCH (09:14)
[2021-09-01] MEDS: Cyanocobalamin (B-12) 1,000 MCG TABLET PO SCH (09:14)
[2021-09-01] MEDS: Aspirin 81 MG TAB.CHEW PO SCH (09:14)
[2021-09-01] MEDS: Baclofen 10 MG TABLET PO SCH ×3 (09:14→21:44)
[2021-09-01] MEDS: Cholecalciferol (D-3) 1,000 UNIT (25MCG) TABLET PO SCH (09:14)
[2021-09-01] MEDS ORDERED: *HR* Warfarin 5 MG TABLET PO ONE (18:00)
[2021-09-01] MEDS: Famotidine 20 MG TABLET PO SCH (21:44)
[2021-09-01] MEDS: rOPINIRole 1 MG TABLET PO SCH (21:44)
[2021-09-02 05:16] LABS: INR 2.4; Prothrombin Time 26.5 Seconds (9.4-12.1)
[2021-09-02] MEDS: Furosemide 20 MG TABLET PO SCH (09:02)
[2021-09-02] MEDS: Multivit/Ca/Min/Fe/FA 1 TAB TABLET PO SCH (09:02)
[2021-09-02] MEDS: *HR* OxyCODONE/APAP 10/325 TABLET PO PRN ×2 (09:02→22:17)
[2021-09-02] MEDS: Cyanocobalamin (B-12) 1,000 MCG TABLET PO SCH (09:02)
[2021-09-02] MEDS: Aspirin 81 MG TAB.CHEW PO SCH (09:02)
[2021-09-02] MEDS: Gabapentin 300 MG CAPSULE PO SCH ×2 (09:03→22:26)
[2021-09-02] MEDS: Metoprolol XL (24 HR) Succ 25 MG TAB.ER.24H PO SCH (09:03)
[2021-09-02] MEDS: Baclofen 10 MG TABLET PO SCH ×3 (09:03→22:18)
[2021-09-02] MEDS: Cholecalciferol (D-3) 1,000 UNIT (25MCG) TABLET PO SCH (09:03)
[2021-09-02] MEDS: (Cranberry 500 MG Capsule) PO SCH (09:07)
[2021-09-02] MEDS: BIOTIN 5000 MCG PO SCH (09:07)
[2021-09-02] MEDS: Clobetasol Propionate 0.05% 15 GM Cream Tube TP SCH ×2 (09:26→22:26)
[2021-09-02] MEDS ORDERED: *HR* Warfarin 2 MG TABLET PO ONE (18:00)
[2021-09-02] MEDS: Famotidine 20 MG TABLET PO SCH (22:16)
[2021-09-02] MEDS: rOPINIRole 1 MG TABLET PO SCH (22:17)
[2021-09-03] MEDS: *HR* OxyCODONE/APAP 10/325 TABLET PO PRN ×3 (04:18→20:52)
[2021-09-03 05:16] LABS: INR 2.8; Prothrombin Time 30.5 Seconds (9.4-12.1)
[2021-09-03] MEDS: Multivit/Ca/Min/Fe/FA 1 TAB TABLET PO SCH (09:49)
[2021-09-03] MEDS: Cyanocobalamin (B-12) 1,000 MCG TABLET PO SCH (09:49)
[2021-09-03] MEDS: Aspirin 81 MG TAB.CHEW PO SCH (09:49)
[2021-09-03] MEDS: Furosemide 20 MG TABLET PO SCH (09:50)
[2021-09-03] MEDS: Metoprolol XL (24 HR) Succ 25 MG TAB.ER.24H PO SCH (09:50)
[2021-09-03] MEDS: Cholecalciferol (D-3) 1,000 UNIT (25MCG) TABLET PO SCH (09:50)
[2021-09-03] MEDS: Gabapentin 300 MG CAPSULE PO SCH ×2 (09:50→20:51)
[2021-09-03] MEDS: Baclofen 10 MG TABLET PO SCH ×3 (09:50→20:51)
[2021-09-03] MEDS ORDERED: *HR* Warfarin 2.5 MG TABLET PO ONE (18:00)
[2021-09-03] MEDS: rOPINIRole 1 MG TABLET PO SCH (20:51)
[2021-09-03] MEDS: Famotidine 20 MG TABLET PO SCH (20:52)
[2021-09-04 04:40] LABS: Hematocrit 36.7 % (35.3-44.9); Hemoglobin 11.7 g/dL (11.5-15.4); Mean Corpuscular HGB Conc 31.9 g/dL (31.6-35.5); Mean Corpuscular Hemoglobin 27.9 pg (28.0-33.3); Mean Corpuscular Volume 87.6 fL (83.0-100.0); Mean Platelet Volume 9.6 fL (9.4-12.4); Platelet Count 242 K/mcL (140-400); Red Blood Count 4.19 M/mcL (3.82-4.97); White Blood Count 5.8 K/mcL (4.3-11.1)
[2021-09-04 04:43] LABS: INR 2.7; Prothrombin Time 30.1 Seconds (9.4-12.1)
[2021-09-04 04:58] LABS: Alanine Aminotransferase 9 Units/L (7-52); Albumin 3.3 g/dL (3.5-5.7); Albumin/Globulin Ratio 1.3 (1.1-2.2); Alkaline Phosphatase 57 Units/L (34-104); Aspartate Amino Transferase 11 Units/L (13-39); BUN/Creatinine Ratio 14 (6-26); Bilirubin,Total 0.4 mg/dL (0.3-1.0); Blood Urea Nitrogen 15 mg/dL (8-23); Calcium 9.4 mg/dL (8.6-10.3); Carbon Dioxide 30 mEq/L (23-29); Chloride 101 mEq/L (98-107); Globulin 2.5 g/dL (2.4-3.5); Glucose 89 mg/dL (70-105); Magnesium 2.1 mg/dL (1.6-2.6); Osmolality,Calculated 290 (280-300); Potassium 3.6 mEq/L (3.5-5.1); Sodium 140 mEq/L (136-145); Total Protein 5.8 g/dL (6.4-8.9); eGFR For African Americans > 60 (> 60); eGFR For Non-African Americans 51 (> 60)
[2021-09-04] MEDS: *HR* OxyCODONE/APAP 10/325 TABLET PO PRN ×2 (06:05→20:54)
[2021-09-04] MEDS: Multivit/Ca/Min/Fe/FA 1 TAB TABLET PO SCH (09:46)
[2021-09-04] MEDS: Furosemide 20 MG TABLET PO SCH (09:46)
[2021-09-04] MEDS: Cholecalciferol (D-3) 1,000 UNIT (25MCG) TABLET PO SCH (09:46)
[2021-09-04] MEDS: Gabapentin 300 MG CAPSULE PO SCH ×2 (09:46→20:54)
[2021-09-04] MEDS: Aspirin 81 MG TAB.CHEW PO SCH (09:46)
[2021-09-04] MEDS: Baclofen 10 MG TABLET PO SCH ×3 (09:46→20:54)
[2021-09-04] MEDS: Cyanocobalamin (B-12) 1,000 MCG TABLET PO SCH (09:46)
[2021-09-04] MEDS: Metoprolol XL (24 HR) Succ 25 MG TAB.ER.24H PO SCH (09:46)
[2021-09-04] MEDS ORDERED: *HR* Warfarin 2.5 MG TABLET PO ONE (18:00)
[2021-09-04] MEDS: rOPINIRole 1 MG TABLET PO SCH (20:54)
[2021-09-04] MEDS: Famotidine 20 MG TABLET PO SCH (20:54)
[2021-09-04] MEDS: Clobetasol Propionate 0.05% 15 GM Cream Tube TP SCH (20:57)
[2021-09-05 05:08] LABS: INR 2.9; Prothrombin Time 32.3 Seconds (9.4-12.1)
[2021-09-05] MEDS: Cholecalciferol (D-3) 1,000 UNIT (25MCG) TABLET PO SCH (08:48)
[2021-09-05] MEDS: *HR* OxyCODONE/APAP 10/325 TABLET PO PRN ×2 (08:48→14:45)
[2021-09-05] MEDS: Metoprolol XL (24 HR) Succ 25 MG TAB.ER.24H PO SCH (08:48)
[2021-09-05] MEDS: Furosemide 20 MG TABLET PO SCH (08:48)
[2021-09-05] MEDS: Baclofen 10 MG TABLET PO SCH ×3 (08:48→20:36)
[2021-09-05] MEDS: Gabapentin 300 MG CAPSULE PO SCH ×2 (08:48→20:36)
[2021-09-05] MEDS: Multivit/Ca/Min/Fe/FA 1 TAB TABLET PO SCH (08:49)
[2021-09-05] MEDS: Aspirin 81 MG TAB.CHEW PO SCH (08:49)
[2021-09-05] MEDS: Cyanocobalamin (B-12) 1,000 MCG TABLET PO SCH (08:51)
[2021-09-05] MEDS ORDERED: *HR* Warfarin 1 MG TABLET PO ONE (18:00)
[2021-09-05] MEDS ORDERED: 0.9 % Sodium Chloride 500 ML IVC ONE (19:48)
[2021-09-05 20:07] LABS: Basophils % 0.3 %; Eosinophils # 0.3 K/mcL (0.0-0.6); Eosinophils % 4.4 %; Hematocrit 35.7 % (35.3-44.9); Hemoglobin 11.4 g/dL (11.5-15.4); Immature Granulocytes % 0.5 % (0-4); Lymphocytes # 1.6 K/mcL (0.6-4.6); Lymphocytes % 27.2 %; Mean Corpuscular HGB Conc 31.9 g/dL (31.6-35.5); Mean Corpuscular Hemoglobin 27.9 pg (28.0-33.3); Mean Corpuscular Volume 87.3 fL (83.0-100.0); Mean Platelet Volume 9.9 fL (9.4-12.4); Monocytes # 0.7 K/mcL (0.0-1.3); Monocytes % 11.4 %; Neutrophils # 3.3 K/mcL (1.6-8.9); Platelet Count 274 K/mcL (140-400); Red Blood Count 4.09 M/mcL (3.82-4.97); Red Cell Distribution Width 15.1 % (11.5-14.5); Segmented Neutrophils % 56.2 %; White Blood Count 5.9 K/mcL (4.3-11.1)
[2021-09-05 20:22] LABS: Albumin 3.1 g/dL (3.5-5.7); Albumin/Globulin Ratio 1.3 (1.1-2.2); Bilirubin,Total 0.2 mg/dL (0.3-1.0); Calcium 9.2 mg/dL (8.6-10.3); Globulin 2.3 g/dL (2.4-3.5); Potassium 3.8 mEq/L (3.5-5.1); Total Protein 5.4 g/dL (6.4-8.9)
[2021-09-05] MEDS: rOPINIRole 1 MG TABLET PO SCH (20:36)
[2021-09-05] MEDS: Famotidine 20 MG TABLET PO SCH (20:36)
[2021-09-05] MEDS: 0.9 % Sodium Chloride 500 ML IVC SCH (21:00)
[2021-09-05 22:54] LABS: Bilirubin,Urine Negative (Negative); Blood,Urine Negative (Negative); Clarity,Urine Slightly Cloudy (Clear); Color,Urine Yellow (Yellow); Glucose,Urine (UA) Normal (Normal); Ketones,Urine Negative (Negative); Leukocyte Esterase,Urine Small (Negative); Nitrite,Urine Negative (Negative); Protein,Urine Negative (Neg-Trace); Specific Gravity,Urine 1.025 (1.010-1.025); Urobilinogen,Urine Normal (Normal)
[2021-09-05 22:57] LABS: Bacteria,Urine Few per hpf (None-Few); Squamous Epithelial Cell,Urine Few per hpf (None-Few)
[2021-09-06 04:31] LABS: INR 2.7; Prothrombin Time 29.6 Seconds (9.4-12.1)
[2021-09-06] MEDS: *HR* OxyCODONE/APAP 5/325 TABLET PO PRN ×2 (05:12→22:49)
[2021-09-06] MEDS: Metoprolol XL (24 HR) Succ 25 MG TAB.ER.24H PO SCH (08:27)
[2021-09-06] MEDS: Furosemide 20 MG TABLET PO SCH (08:27)
[2021-09-06] MEDS: Cholecalciferol (D-3) 1,000 UNIT (25MCG) TABLET PO SCH (08:27)
[2021-09-06] MEDS: Multivit/Ca/Min/Fe/FA 1 TAB TABLET PO SCH (08:27)
[2021-09-06] MEDS: Gabapentin 300 MG CAPSULE PO SCH ×2 (08:27→22:51)
[2021-09-06] MEDS: Aspirin 81 MG TAB.CHEW PO SCH (08:27)
[2021-09-06] MEDS: Baclofen 10 MG TABLET PO SCH ×3 (08:28→22:49)
[2021-09-06] MEDS: Cyanocobalamin (B-12) 1,000 MCG TABLET PO SCH (08:30)
[2021-09-06] MEDS: *HR* Warfarin 2.5 MG TABLET PO SCH (18:13)
[2021-09-06] MEDS: Famotidine 20 MG TABLET PO SCH (22:50)
[2021-09-06] MEDS: rOPINIRole 1 MG TABLET PO SCH (22:50)
[2021-09-06] MEDS: Clobetasol Propionate 0.05% 15 GM Cream Tube TP SCH (22:54)
[2021-09-07 04:49] LABS: Hematocrit 32.8 % (35.3-44.9); Hemoglobin 10.3 g/dL (11.5-15.4); Mean Corpuscular HGB Conc 31.4 g/dL (31.6-35.5); Mean Corpuscular Hemoglobin 27.7 pg (28.0-33.3); Mean Corpuscular Volume 88.2 fL (83.0-100.0); Mean Platelet Volume 9.9 fL (9.4-12.4); Platelet Count 272 K/mcL (140-400); Red Blood Count 3.72 M/mcL (3.82-4.97); Red Cell Distribution Width 15.1 % (11.5-14.5); White Blood Count 5.8 K/mcL (4.3-11.1)
[2021-09-07 04:54] LABS: Prothrombin Time 22.2 Seconds (9.4-12.1)
[2021-09-07 05:36] LABS: BUN/Creatinine Ratio 15 (6-26); Blood Urea Nitrogen 15 mg/dL (8-23); Calcium 9.1 mg/dL (8.6-10.3); Carbon Dioxide 32 mEq/L (23-29); Chloride 105 mEq/L (98-107); Glucose 104 mg/dL (70-105); Osmolality,Calculated 295 (280-300); Potassium 3.7 mEq/L (3.5-5.1); Sodium 142 mEq/L (136-145); eGFR For African Americans > 60 (> 60); eGFR For Non-African Americans 54 (> 60)
[2021-09-07] MEDS: Cholecalciferol (D-3) 1,000 UNIT (25MCG) TABLET PO SCH (10:16)
[2021-09-07] MEDS: Baclofen 10 MG TABLET PO SCH ×3 (10:17→21:18)
[2021-09-07] MEDS: Gabapentin 300 MG CAPSULE PO SCH ×2 (10:17→21:18)
[2021-09-07] MEDS: Metoprolol XL (24 HR) Succ 25 MG TAB.ER.24H PO SCH (10:17)
[2021-09-07] MEDS: Multivit/Ca/Min/Fe/FA 1 TAB TABLET PO SCH (10:17)
[2021-09-07] MEDS: Aspirin 81 MG TAB.CHEW PO SCH (10:18)
[2021-09-07] MEDS: Furosemide 20 MG TABLET PO SCH (10:18)
[2021-09-07] MEDS: *HR* OxyCODONE/APAP 5/325 TABLET PO PRN ×2 (10:18→17:18)
[2021-09-07] MEDS: Cyanocobalamin (B-12) 1,000 MCG TABLET PO SCH (10:18)
[2021-09-07] MEDS: 0.9 % Sodium Chloride 500 ML IVC SCH (11:10)
[2021-09-07] MEDS: *HR* Warfarin 2.5 MG TABLET PO SCH (17:05)
[2021-09-07 19:13] VITALS: RESP 15
[2021-09-07] MEDS: rOPINIRole 1 MG TABLET PO SCH (21:18)
[2021-09-07] MEDS: Famotidine 20 MG TABLET PO SCH (21:19)
[2021-09-08 07:03] VITALS: TEMP 97.5
[2021-09-08] MEDS: Multivit/Ca/Min/Fe/FA 1 TAB TABLET PO SCH (08:31)
[2021-09-08] MEDS: Metoprolol XL (24 HR) Succ 25 MG TAB.ER.24H PO SCH (08:31)
[2021-09-08] MEDS: Cyanocobalamin (B-12) 1,000 MCG TABLET PO SCH (08:31)
[2021-09-08] MEDS: Gabapentin 300 MG CAPSULE PO SCH (08:31)
[2021-09-08] MEDS: Aspirin 81 MG TAB.CHEW PO SCH (08:32)
[2021-09-08] MEDS: Baclofen 10 MG TABLET PO SCH (08:32)
[2021-09-08] MEDS: Furosemide 20 MG TABLET PO SCH (08:32)
[2021-09-08] MEDS: Cholecalciferol (D-3) 1,000 UNIT (25MCG) TABLET PO SCH (08:32)
[2021-09-08] MEDS: *HR* OxyCODONE/APAP 5/325 TABLET PO PRN (08:35)
[2021-09-08 11:17] VITALS: BP 120/78; PULSE 77; O2SAT 98
[2021-09-08] MEDS ORDERED: *HR* Warfarin 5 MG TABLET PO ONE (18:00)
[2021-09-08] MEDS ORDERED: *HR* Warfarin 2.5 MG TABLET PO SCH (18:00)
[2021-09-09] MEDS ORDERED: *HR* Warfarin 2.5 MG TABLET PO SCH (18:00)
== END 2021-09-08 11:56 | disposition home health service (06) | DRG 189 ==
LOC: SUATTDRO 16:06 → INPGRE 16:06
PROVIDERS: ADMIT Internal Medicine; ATTEND Family Medicine